=== PATIENT | female | born 1990 | race Native Hawaiian/Other Pacific Islander ===

== ENCOUNTER 2021-08-08 12:30 | Outpatient (CLI) | payer OTHER ==
[2021-08-08 13:00] LABS: PLATELET COUNT 352 K/uL (152-353)
[2021-08-08 13:08] LABS: POTASSIUM 4.2 mmol/L (3.6-5.2)
== END 2021-08-08 19:13 | disposition home or self-care (01) ==
LOC: CT 12:30
PROVIDERS: ATTEND Nurse Practitioner Family
DX: M94.0 Chondrocostal junction syndrome [Tietze] (principal)
CPT/HCPCS: 36415; 80053; 82550; 82553; 85027

== ENCOUNTER 2021-08-28 11:05 | Outpatient (CLI) | payer OTHER | END 2021-08-28 20:06 | disposition home or self-care (01) | LOC: US 11:05 | PROVIDERS: ATTEND Nurse Practitioner Primary Care | DX: R22.2 Localized swelling, mass and lump, trunk (principal) ==

== ENCOUNTER 2021-12-04 16:16 | Outpatient (CLI) | payer OTHER | END 2021-12-04 19:05 | disposition home or self-care (01) | LOC: LABW 16:16 | PROVIDERS: ATTEND Family Medicine | DX: R07.0 Pain in throat (principal) | CPT/HCPCS: 87651 ==